=== PATIENT | female | born 1970 | race Caucasian/White ===

== ENCOUNTER → 2016-06-16 | Outpatient (CLI) | payer OTHER | LOC: MC.RAD 09:46 | DX: Z12.31 Encounter for screening mammogram for malignant neoplasm of breast (principal) ==

== ENCOUNTER → 2016-09-06 | Outpatient (REF) | LOC: WSOH 10:30 | DX: Z02.89 Encounter for other administrative examinations (principal) ==

== ENCOUNTER → 2016-11-04 | Outpatient (REF) | LOC: WSOH 16:15 | DX: Z02.89 Encounter for other administrative examinations (principal) ==

== ENCOUNTER 2017-01-31 11:00 | Outpatient (RCR) | payer OTHER ==
[~2017-01-31 11:00] MED LIST: ASPIRIN 32325 MG/TAB PO; COLACE 100100 MG/CAP PO; MINOCYCLIN100 MG/CAP PO; MOBIC15 MG PO; MOTRIN 400400 MG/TAB PO; PERCOCET 325 MG1 TA2 PO; ZOFRAN 4MG T4 MG/TAB PO
== END 2017-03-22 09:24 | disposition home or self-care (01) ==
LOC: MKS.ESL.PT 11:00
DX: Z47.89 Encounter for other orthopedic aftercare (principal); M23.304 Other meniscus derangements, unspecified medial meniscus, left knee

== ENCOUNTER → 2017-03-22 | Outpatient (CLI) | payer OTHER | LOC: BHSO 09:00 | DX: F32.0 Major depressive disorder, single episode, mild (principal) ==

== ENCOUNTER → 2017-04-04 | Outpatient (CLI) | payer OTHER | LOC: BHSO 12:55 | DX: F32.1 Major depressive disorder, single episode, moderate (principal) ==

== ENCOUNTER → 2017-04-28 | Outpatient (CLI) | payer OTHER | LOC: BHSO 14:58 | DX: F32.0 Major depressive disorder, single episode, mild (principal) ==

== ENCOUNTER → 2017-07-20 | Outpatient (CLI) | payer BC | LOC: MC.RAD 07:46 | DX: Z12.31 Encounter for screening mammogram for malignant neoplasm of breast (principal); Z98.890 Other specified postprocedural states ==

== ENCOUNTER → 2017-10-06 | Outpatient (CLI) | payer OTHER | LOC: BHSO 13:54 | DX: F33.0 Major depressive disorder, recurrent, mild (principal) ==

== ENCOUNTER → 2017-11-10 | Outpatient (CLI) | payer OTHER | LOC: BHSO 13:51 | DX: F33.0 Major depressive disorder, recurrent, mild (principal) ==

== ENCOUNTER → 2017-12-07 | Outpatient (CLI) | payer BC | LOC: BHSO 08:51 | DX: F41.1 Generalized anxiety disorder (principal) ==

== ENCOUNTER → 2018-10-15 | Outpatient (CLI) | payer OTHER | LOC: BHSO 15:03 | DX: F33.0 Major depressive disorder, recurrent, mild (principal) ==

== ENCOUNTER 2018-11-01 15:11 | Outpatient (RCR) | payer OTHER ==
[~2018-11-01 15:11] MED LIST changes: -ADVIL200 MG PO; -ALDACTONE50 MG PO; -MULTI VITAMINS1 TAB PO
[2018-11-02] MEDS ORDERED: MULTI VITAMINS1 TAB PO (06:05)
[2018-11-02] MEDS ORDERED: ALDACTONE50 MG PO (06:05)
[2018-11-02] MEDS ORDERED: ADVIL200 MG PO (06:07)
[2018-11-02] MEDS ORDERED: PERCOCET 325 MG1 TA2 PO (08:57)
[2018-11-02] MEDS ORDERED: MOBIC15 MG PO (08:58)
[2018-11-02] MEDS ORDERED: COLACE 100100 MG/CAP PO (08:58)
[2018-11-02] MEDS ORDERED: ZOFRAN 4MG T4 MG/TAB PO (08:59)
[2018-11-02] MEDS ORDERED: ASPIRIN 32325 MG/TAB PO (09:01)
== END 2018-11-06 10:06 | disposition home or self-care (01) ==
LOC: MKS.ESL.PT 15:11
DX: Z01.818 Encounter for other preprocedural examination (principal)

== ENCOUNTER → 2018-11-01 | Outpatient (CLI) | payer OTHER ==
[~2018-11-01] MED LIST changes: +ADVIL200 MG PO; +ALDACTONE50 MG PO; +MULTI VITAMINS1 TAB PO
== END ==
LOC: BHSO 09:58
DX: F41.1 Generalized anxiety disorder (principal)

== ENCOUNTER 2018-11-02 05:20 | Day surgery (SDC) | payer OTHER ==
[~2018-11-02] VITALS: Ht 160 cm; Wt 62.2 kg
[2018-11-02 05:58] VITALS: BP 103/68; PULSE 69; TEMP 98.3
[2018-11-02] MEDS ORDERED: ALDACTONE50 MG PO (06:05)
[2018-11-02] MEDS ORDERED: MULTI VITAMINS1 TAB PO (06:05)
[2018-11-02] MEDS ORDERED: ADVIL200 MG PO (06:07)
--- NOTE | 2018-11-02 06:09 | NUR ---
TO RM AT 05- CALL LIGHT IN REACH DAUGHTERS AT BEDSIDE
[2018-11-02 08:30] VITALS: BP 119/64; PULSE 61; TEMP 98.1
--- NOTE | 2018-11-02 08:30 | NUR ---
TO RM 8 PER CART FROM PACU. ALERT ORIENTED X3, TALKING WITH STAFF AND DAUGHTERS. OPERATIVE LEG ELEVATED AND ICED. C/O PAIN RIGHT KNEE 05/06. DENIES NAUSEA, DOES C/O ABD DISCOMFORT.
[2018-11-02 08:45] VITALS: BP 106/57; PULSE 65
--- NOTE | 2018-11-02 08:45 | NUR ---
RECEIVED WATER AND CRACKERS. PATIENT STATED HER ABDOMINAL DISCOMFORT IS DOING BETTER.
[2018-11-02] MEDS ORDERED: PERCOCET 325 MG1 TA2 PO (08:57)
[2018-11-02] MEDS ORDERED: COLACE 100100 MG/CAP PO (08:58)
[2018-11-02] MEDS ORDERED: MOBIC15 MG PO (08:58)
[2018-11-02] MEDS ORDERED: ZOFRAN 4MG T4 MG/TAB PO (08:59)
[2018-11-02 09:00] VITALS: BP 115/71; PULSE 67
--- NOTE | 2018-11-02 09:00 | NUR ---
ATE 100 % AND TOLERATED WELL. NO CHANGES ON PAIN
[2018-11-02] MEDS ORDERED: ASPIRIN 32325 MG/TAB PO (09:01)
[2018-11-02 09:05] VITALS: BP 126/76; PULSE 60
--- NOTE | 2018-11-02 09:15 | NUR ---
AMBULATED TO BATHROOM WITH CRUTCHES. VOIDED AND TOLERATED WELL.
--- NOTE | 2018-11-02 09:30 | NUR ---
DAUGHTERS AND PATIENT RECEIVED DISCHARGE INSTRUCTIONS AND VERBALIZED UNDERSTANDING. THERE WAS 2 DIFFERENT DATES FOR FOLLOW AT OFFICE. PATIENT STATED SHE WOULD CALL TO CLARIFY TO FIT HER SCHEDULE. DISCONTINUED IV AND INT- CATHETER INTACT. PATIENT GETTING DRESSED
--- NOTE | 2018-11-02 09:40 | NUR ---
DISCHARGED PER WC BY NURSING STAFF TO PRIVATE CAR IN CARE OF DAUGHTERS.
== END 2018-11-02 09:45 | disposition home or self-care (01) ==
LOC: SDCO 05:20
DX: S83.241A Other tear of medial meniscus, current injury, right knee, initial encounter (principal); Z90.49 Acquired absence of other specified parts of digestive tract; Z87.891 Personal history of nicotine dependence; Z91.018 Allergy to other foods; Z79.82 Long term (current) use of aspirin
CPT/HCPCS: J0690; J1100; J1170; J1885; J2250; J2405; J2704; J3010; J7120

== ENCOUNTER 2018-11-22 16:00 | Outpatient (RCR) | payer OTHER ==
[~2018-11-22 16:00] MED LIST changes: +ADVIL200 MG PO; +ALDACTONE50 MG PO; +MULTI VITAMINS1 TAB PO
== END 2019-02-04 | disposition home or self-care (01) ==
LOC: MKS.ESL.PT
DX: Z98.890 Other specified postprocedural states (principal)

== ENCOUNTER → 2018-12-03 | Outpatient (CLI) | payer OTHER | LOC: BHSO 14:59 | DX: F33.0 Major depressive disorder, recurrent, mild (principal) ==

== ENCOUNTER → 2019-01-02 | Outpatient (CLI) | payer OTHER | LOC: BHSO 08:59 | DX: F33.1 Major depressive disorder, recurrent, moderate (principal) ==

== ENCOUNTER → 2019-01-29 | Outpatient (CLI) | payer OTHER | LOC: BHSO 14:54 | DX: F41.1 Generalized anxiety disorder (principal) ==

== ENCOUNTER → 2019-03-20 | Outpatient (CLI) | payer OTHER | LOC: BHSO 14:08 | DX: F33.0 Major depressive disorder, recurrent, mild (principal) ==

== ENCOUNTER → 2019-04-19 | Outpatient (CLI) | payer OTHER | LOC: BHSO 15:49 | DX: F33.1 Major depressive disorder, recurrent, moderate (principal) ==

== ENCOUNTER → 2019-05-13 | Outpatient (CLI) | payer OTHER | LOC: BHSO 15:55 | DX: F33.1 Major depressive disorder, recurrent, moderate (principal) ==

== ENCOUNTER → 2019-07-18 | Outpatient (CLI) | payer OTHER | LOC: MC.RAD 09:59 | DX: Z12.31 Encounter for screening mammogram for malignant neoplasm of breast (principal); Z98.82 Breast implant status ==

== ENCOUNTER → 2019-08-07 | Outpatient (CLI) | payer OTHER | LOC: BHSO 09:59 | DX: F33.0 Major depressive disorder, recurrent, mild (principal) ==

== ENCOUNTER → 2019-09-04 | Outpatient (CLI) | payer OTHER | LOC: BHSO 09:58 | DX: F33.0 Major depressive disorder, recurrent, mild (principal) ==

== ENCOUNTER → 2019-09-16 | Outpatient (CLI) | payer OTHER | LOC: BHSO 10:56 | DX: F33.0 Major depressive disorder, recurrent, mild (principal) ==

== ENCOUNTER 2021-05-21 06:35 | Day surgery (SDC) | payer BC ==
[~2021-05-21] VITALS: Ht 160 cm; Wt 66.0 kg
[2021-05-21 07:11] VITALS: BP 99/72; PULSE 91; TEMP 97.3
[2021-05-21] MEDS ORDERED: MOBIC15 MG PO (07:17)
[2021-05-21] MEDS ORDERED: [UNRECOGNIZED DRUG - OTHER] PO (07:18)
[2021-05-21 08:15] VITALS: BP 118/59; PULSE 79; TEMP 97.9
--- NOTE | 2021-05-21 08:15 | NUR ---
Pt arrived from endo suite, drowsy but oriented. Vitals obtained and are WNL. Verbal report obtained. Pt requested a warm muffin and ice water. Call lopez is within reach at bedside. Will continue to monitor per intervals.
--- NOTE | 2021-05-21 08:21 | NUR ---
is in to speak with pt.
[2021-05-21 08:30] VITALS: BP 116/74; PULSE 71
--- NOTE | 2021-05-21 08:30 | NUR ---
Pt denies nausea. No vomiting. Vitals obtained. Pt expressed desire to be discharged. Call lopez remains within reach.
[2021-05-21 08:45] VITALS: BP 120/77; PULSE 69
--- NOTE | 2021-05-21 08:45 | NUR ---
Vitals obtained. IV discontinued. Catheter tip intact. Pressure dressing applied. No redness or swelling noted. DC instructions and educational material was reviewed with the pt, who verbalized understanding and signed the related paperwork. Low-fiber diet was also reviewed with pt, who verbalized understanding. Pt denied needing assistance changing into personal clothes.
--- NOTE | 2021-05-21 08:55 | NUR ---
Pt dismissed from Endo via wheelchair by Nazia to the patient entrence w/ daughter Von. Pt was transferred into the care of her daughter, who is present to drive.
== END 2021-05-21 08:57 | disposition home or self-care (01) ==
LOC: SDCO 06:35
DX: Z12.11 Encounter for screening for malignant neoplasm of colon (principal); D12.3 Benign neoplasm of transverse colon; K63.5 Polyp of colon; K57.30 Diverticulosis of large intestine without perforation or abscess without bleeding; K63.89 Other specified diseases of intestine; K64.0 First degree hemorrhoids; Z87.891 Personal history of nicotine dependence; Z20.822 Contact with and (suspected) exposure to COVID-19
CPT/HCPCS: J2704; J7120